=== PATIENT | female | born 1985 | race Caucasian/White ===

== ENCOUNTER 2020-07-17 16:39 | Inpatient (IN) | payer OTHER ==
[2020-07-17 17:14] LABS: HEMOGLOBIN 10.3 gm/dl (12.3-15.3); RED BLOOD COUNT 3.79 M/UL (4.00-5.10); WHITE BLOOD COUNT 10.3 K/UL (4.5-11.0)
[2020-07-19 06:43] LABS: HEMOGLOBIN 9.1 gm/dl (12.3-15.3)
[2020-07-19] MEDS ORDERED: LABETALOL HCL200 MG PO (15:18)
[2020-07-19] MEDS ORDERED: BUPRENORPHIN-N1 EACH SL (15:18)
[2020-07-19] MEDS ORDERED: IBUPROFEN600 MG PO (15:18)
[2020-07-19] MEDS ORDERED: FERROUS SULFAT325 M2 PO (15:18)
[2020-07-19] MEDS ORDERED: DOCUSATE SODIU100 MG PO (15:18)
== END 2020-07-19 16:00 | disposition home or self-care (01) | DRG 806 ==
LOC: GENOP 16:39 → OB 16:56
PROVIDERS: ADMIT Obstetrics & Gynecology
PROC: 4A1HX4Z Monitoring of Products of Conception, Cardiac Electrical Activity, External Approach (ICD-10-PCS; principal; 2020-07-17)
PROC: 0U7C7ZZ Dilation of Cervix, Via Natural or Artificial Opening (ICD-10-PCS; 2020-07-17)
PROC: 10E0XZZ Delivery of Products of Conception, External Approach (ICD-10-PCS; 2020-07-18)
PROC: 10907ZC Drainage of Amniotic Fluid, Therapeutic from Products of Conception, Via Natural or Artificial Opening (ICD-10-PCS; 2020-07-18)
DX: O13.4 Gestational [pregnancy-induced] hypertension without significant proteinuria, complicating childbirth (principal); F11.20 Opioid dependence, uncomplicated; Z37.0 Single live birth; O99.324 Drug use complicating childbirth; Z3A.37 37 weeks gestation of pregnancy; O62.2 Other uterine inertia; Z20.822 Contact with and (suspected) exposure to COVID-19
CPT/HCPCS: 36415; 51702; 80307; 81001; 82800; 85014; 85018; 85025; 86850; 86900; 86901; J2590; U0003